=== PATIENT | female | born 1990 | race Caucasian/White ===

== ENCOUNTER 2018-01-04 13:50 | Emergency (ER) | payer MEDICAID ==
[2018-01-04] MEDS ORDERED: NORMAL SALINE 1,000 ML IV ONE (14:12)
[2018-01-04 14:24] LABS: Hematocrit 29.1 % (37.0-47.0); Hemoglobin 10.2 gm/dL (12.5-16.0); Mean Cell Volume 91.8 fl (78-100); Mean Corpuscular Hemoglobin 32.2 pg (27-31); Mean Corpuscular Hgb Conc 35.1 g/dl (32-36); Mean Platelet Volume 8.9 fl (6.0-9.5); Neutrophil # 10.3 K/mm3 (1.3-6.0); Neutrophil % 84.2 % (42-75.0); Platelet Count 207 K/mm3 (150-450); Red Blood Count 3.17 M/mm3 (4.2-5.4); White Blood Count 12.3 K/mm3 (4.0-10.5)
[2018-01-04 14:36] LABS: Anion Gap 17.9 mmol/L (6.8-13.8); Bilirubin, Total 0.8 mg/dL (0.0-1.1); Carbon Dioxide 27.8 mmol/L (24-32.6); Magnesium 0.5 mg/dL (1.2-2.8); Potassium 2.7 mmol/L (3.4-4.6); Total Protein 6.1 gm/dL (6.2-8.2)
[2018-01-04 14:40] LABS: Calcium * 5.5 mg/dL (7.9-10.9)
[2018-01-04 14:52] LABS: Urine Bilirubin 1 mg/dl (NEGATIVE); Urine Ketone 15 mg/dL (NEGATIVE); Urine Nitrite Negative (NEGATIVE); Urine Protein 30 mg/dL (NEGATIVE); Urine Specific Gravity >=1.030 SP.GR. (1.005-1.010); Urine Urobilinogen Normal (NORMAL)
[2018-01-04 15:05] LABS: Urine Appearance Slightly Cloudy; Urine Blood 5 /ul (NEGATIVE); Urine Color Dark Yellow; Urine WBC 0-5 /hpf (0-5)
[2018-01-04 15:06] LABS: Urine Bacteria TRACE; Urine Fine Granular Cast 0-5 /LPF; Urine Hyaline Cast 0-5 /LPF; Urine RBC None Seen /hpf (0-5)
[2018-01-04] MEDS ORDERED: CALCIUM GLUCONATE 4.65 MEQ/10 ML VIAL IV ONE ×4 (15:06→16:32)
[2018-01-04] MEDS ORDERED: MAGNESIUM SULFATE IN WATER 50 ML IV ONE (15:14)
[2018-01-04 15:17] LABS: Cocaine Ur Negative (NEGATIVE); Urine Barbiturate Negative (NEGATIVE); Urine Benzodiazepines Negative (NEGATIVE); Urine Opiates Negative (NEGATIVE); Urine PCP Negative (NEGATIVE); Urine THC Negative (NEGATIVE)
[2018-01-04] MEDS ORDERED: POTASSIUM CHLORIDE 40 MEQ in NORMAL SALINE 1,000 ML IV SCH (15:45)
[2018-01-04] MEDS ORDERED: MORPHINE SULFATE 2 MG/ML DISP.SYRIN IV ONE ×2 (15:46→16:45)
[2018-01-04] MEDS ORDERED: MORPHINE SULFATE 2 MG/ML DISP.SYRIN ONE ×2 (15:53→16:47)
[2018-01-04 15:55] LABS: TSH * 3.945 uIU/mL (0.358-3.74)
[2018-01-04 17:09] VITALS: BP 119/73
--- NOTE | 2018-01-04 17:15 | ERNOTE ---
Medical Problem HPI - Narrative Date of Service: 01/04/18 - General Chief Complaint: Seizure Activity Time Seen by Provider: 01/04/18 14:05 Source: patient, family Exam Limitations: no limitations - Immun/Allergies/Home Medications Immunizations: IMMUNIZATION HX Immunizations Up to Date Yes History of Influenza Vaccine No Hx Pneumococcal Vaccination No Allergies/Adverse Reactions: Allergies No Known Allergies Allergy (Verified 01/04/18 13:59) Home Medications: HOME MEDICATIONS NK [No Home Medication] 01/04/18 [Last Taken Unknown] - History of Present History Narrative: patient had seizure two days ago recoverd then fell today with spasm in feet and hands Timing: constant Severity: moderate Modifying Factors - (Improves): Present: other - nothhing Modifying Factors - (Worsens): Present: other - nothing Review of Systems - Review of Systems Constitutional: Present: See HPI, weakness, fatigue, malaise EYE: Present: no symptoms reported ENT: Present: no symptoms reported Respiratory: Present: no symptoms reported Cardiology: Present: no symptoms reported Gastrointestinal/Abdominal: Present: no symptoms reported Genitourinary: Present: no symptoms reported Musculoskeletal: Present: See HPI, other - spasms of feet and hands Skin: Present: no symptoms reported Neurological: Present: numbness - in feet and hands Endocrine: Present: no symptoms reported Hematologic/Lymphatic: Present: no symptoms reported Psych: Present: no symptoms reported All Other Systems: All systems neg except as marked - Patient's Past Medical History Patient History - Medical: No pertinent hx, Seizures, Other - alocohol abuse Patient History - Cardiac/Respiratory: No pertinent hx Patient History - Cancer: No Hx of Cancer Patient History - Surgical Procedures: Patient History - Other: None LMP (females 10-50): 2 months - Family History Family History:: no untoward family reactions to anesthesia, no familial bleeding tendencies, no family history of clotting disorders, no family history of premature - Social History Living Situations: home Abuse History: No History of abuse Psych History: Hx of Anxiety, Hx of Depression Does anyone smoke in the home?: Yes Smoking Status: Current every day smoker Have you smoked in the past 12 months: Yes Do you dip or chew tobacco: No Patient requests Smoking Cessation Consult: No Initiate information on Smoking Cessation: No Alcohol Use: occasionally Drug Use: none - Immunizations Immunizations Up to Date: Yes Hx Pneumococcal Vaccination: No History of Influenza Vaccine: No Physical Exam - Physical Exam General Appearance: Present: alert, moderate distress, anxious Head Exam: Present: normal inspection, other - periorbital ecchymosiis left eye ED Progress - Date and Time Seen: Date and Time: 01/04/18 17:08 improved somewhat - Results and Orders Patient's Lab Results:: I have reviewed the patient's lab results. - Vital Signs Patient's Vital Signs:: I have reviewed the patient's vital signs. Vital Signs: Vital Signs 01/04/18 01/04/18 01/04/18 13:54 14:49 16:03 Temperature 37 C Pulse Rate 120 H 123 H 116 H Respiratory 24 H 21 H 16 Rate Blood Pressure 127/81 129/79 126/72 O2 Sat by Pulse 97 97 98 Oximetry 01/04/18 16:39 Temperature Pulse Rate 110 H Respiratory 18 Rate Blood Pressure 117/65 O2 Sat by Pulse 98 Oximetry - EKG EKG: other - sinus tachycardia EKG read: Interp. by me - X-Ray X-Ray #1 X-Ray: chest - no acute disease Interpretation: Discd w/ radiologist - CT/Ultrasound CT/Ultrasound Narrative: ct head no acute process - Progress/Reassessment Chief Complaint: Seizure Activity Progress:: Improved - Transfer of Care Expected Disposition: Transfer - discussed case with dr chandler patient accepted to transfer, case discussed with dr hernandez who felt patient needs exceede capability to care for at [facility]- Plan - Plan Plan: to tranfeer to [facility] Departure Clinical Impression: Hypocalcemia, Hypomagnesemia, Seizure - Departure Disposition: Condition: Fair
== END 2018-01-04 18:00 | disposition short-term general hospital (02) ==
LOC: ER 13:50
DX: E83.51 Hypocalcemia (principal); E83.42 Hypomagnesemia; R56.9 Unspecified convulsions; F17.200 Nicotine dependence, unspecified, uncomplicated; R53.1 Weakness
CPT/HCPCS: 36415; 70450; 71045; 80053; 80307; 81001; 83735; 84439; 84443; 84481; 84703; 85025; 87086; 87400; 93005; 96365; 96366; 96375; 99283; G0481